=== PATIENT | female | born 1980 | race Caucasian/White ===

== ENCOUNTER 2017-03-13 17:30 | Emergency (ER) | payer OTHER ==
[~2017-03-13] VITALS: Ht 170.2 cm; Wt 90.7 kg
[2017-03-13] MEDS ORDERED: MOBIC15 MG PO (18:14)
[2017-03-13] MEDS ORDERED: NORCO 5-325 TA1 EACH PO (18:28)
[2017-03-13 18:33] VITALS: BP 129/82
== END 2017-03-13 18:33 | disposition home or self-care (01) ==
LOC: ER 17:30
DX: S92.512A Displaced fracture of proximal phalanx of left lesser toe(s), initial encounter for closed fracture (principal); W22.8XXA Striking against or struck by other objects, initial encounter; Y93.89 Activity, other specified; Y92.89 Other specified places as the place of occurrence of the external cause; Y99.8 Other external cause status

== ENCOUNTER 2017-07-21 17:27 | Emergency (ER) | payer OTHER ==
[~2017-07-21] VITALS: Ht 170.2 cm; Wt 90.7 kg
[~2017-07-21 17:27] MED LIST: MOBIC15 MG PO; NORCO 5-325 TA1 EACH PO
[2017-07-21] MEDS ORDERED: HYDROCODONE-AP1 EAC6 PO (18:53)
[2017-07-21 19:11] VITALS: BP 138/88
== END 2017-07-21 19:12 | disposition home or self-care (01) ==
LOC: ER 17:27
DX: S60.031A Contusion of right middle finger without damage to nail, initial encounter (principal); W22.8XXA Striking against or struck by other objects, initial encounter; Y93.89 Activity, other specified; Y92.89 Other specified places as the place of occurrence of the external cause; Y99.8 Other external cause status

== ENCOUNTER 2017-08-14 13:46 | Emergency (ER) | payer OTHER ==
[~2017-08-14] VITALS: Ht 167.6 cm; Wt 83.9 kg
[~2017-08-14 13:46] MED LIST changes: +HYDROCODONE-AP1 EAC6 PO
[2017-08-14 14:40] VITALS: BP 121/83
[2017-08-14] MEDS ORDERED: VIBRAMYCIN 100100 MG PO (15:06)
== END 2017-08-14 14:45 | disposition home or self-care (01) ==
LOC: ER 13:46
DX: L73.9 Follicular disorder, unspecified (principal); J06.9 Acute upper respiratory infection, unspecified

== ENCOUNTER 2020-06-28 11:36 | Emergency (ER) | payer OTHER ==
[~2020-06-28] VITALS: Ht 170.2 cm; Wt 86.2 kg
[~2020-06-28 11:36] MED LIST changes: +VIBRAMYCIN 100100 MG PO
[2020-06-28] MEDS ORDERED: TRAZODONE HCL100 MG PO (11:49)
[2020-06-28] MEDS ORDERED: CEPHALEXIN500 MG PO (11:50)
[2020-06-28] MEDS ORDERED: ONDANSETRON HCL4 M2 PO (11:50)
[2020-06-28 12:09] LABS: URINE BILIRUBIN NEGATIVE (Negative); URINE BLOOD NEGATIVE (Negative); URINE CLARITY CLEAR; URINE GLUCOSE-RANDOM* TRACE (Negative); URINE KETONES NEGATIVE (Negative); URINE LEUKOCYTES-REFLEX TRACE (Negative); URINE PROTEIN (DIPSTICK) NEGATIVE (Negative); URINE SPECIFIC GRAVITY >= 1.030 (1.005-1.035)
[2020-06-28 12:11] LABS: URINE NITRITE-REFLEX POSITIVE (Negative)
[2020-06-28 12:13] LABS: URINE COLOR ORANGE
[2020-06-28 12:37] LABS: CASTS None Seen /LPF (None Seen); MUCUS >6 Heavy strn/LPF (None Seen); SQUAMOUS >10 Many /LPF (0-3)
[2020-06-28 12:38] LABS: BACTERIA-REFLEX 1-9 Few /HPF (None Seen); CRYSTALS None Seen /LPF (None Seen); URINE RBC None Seen /HPF (0-2); URINE WBC-REFLEX 0-5 Rare /HPF (0-5)
[2020-06-28 13:14] LABS: HEMATOCRIT 37.8 % (37.0-47.0); HEMOGLOBIN 12.4 gm/dL (12.0-15.0); MCH 32.1 pg (26.0-34.0); MCHC 32.8 g/dL (28.0-37.0); MCV 97.8 fL (80.0-100.0); PLATELET COUNT 211 thou/uL (150-400); RBC 3.87 mil/uL (4.20-5.00); RDW 15.2 % (10.5-14.5); WBC 6.7 thou/uL (4.0-11.0)
[2020-06-28 13:15] LABS: CALCIUM 8.5 mg/dL (8.5-10.1); CREATININE 0.8 mg/dL (0.6-1.0); POTASSIUM 4.1 mmol/L (3.5-5.1)
[2020-06-28 13:22] LABS: TOTAL BILIRUBIN 0.3 mg/dL (0.2-1.0); TOTAL PROTEIN 6.6 g/dL (6.4-8.2)
[2020-06-28 13:48] LABS: ABSOLUTE NEUTROPHILS 4.2 thou/uL (1.4-8.2); LARGE PLATELETS OCCASIONAL
[2020-06-28] MEDS ORDERED: ZOFRAN ODT4 MG PO (14:12)
[2020-06-28] MEDS ORDERED: SENOKOT-S TABL1 EACH PO (14:12)
[2020-06-28] MEDS ORDERED: IBU600 MG PO (14:12)
[2020-06-28 14:16] VITALS: BP 169/112
[2020-06-28] MEDS ORDERED: NORCO 5-325 TA1 EAC2 PO (14:17)
== END 2020-06-28 14:29 | disposition home or self-care (01) ==
LOC: ER 11:36
PROVIDERS: Physician Assistant
DX: N83.201 Unspecified ovarian cyst, right side (principal); Z79.899 Other long term (current) drug therapy

== ENCOUNTER 2020-07-03 13:42 | Emergency (ER) | payer OTHER ==
[~2020-07-03] VITALS: Ht 170.2 cm; Wt 86.2 kg
[~2020-07-03 13:42] MED LIST changes: +CEPHALEXIN500 MG PO; +IBU600 MG PO; +NORCO 5-325 TA1 EAC2 PO; +ONDANSETRON HCL4 M2 PO; +SENOKOT-S TABL1 EACH PO; +TRAZODONE HCL100 MG PO; +ZOFRAN ODT4 MG PO
[2020-07-03 14:08] LABS: URINE BILIRUBIN NEGATIVE (Negative); URINE BLOOD 2+ (Negative); URINE CLARITY CLEAR; URINE COLOR YELLOW; URINE GLUCOSE-RANDOM* NEGATIVE (Negative); URINE KETONES NEGATIVE (Negative); URINE LEUKOCYTES-REFLEX NEGATIVE (Negative); URINE NITRITE-REFLEX NEGATIVE (Negative); URINE PROTEIN (DIPSTICK) NEGATIVE (Negative); URINE UROBILINOGEN 0.2 E.U./dl (0.2-1.0)
[2020-07-03 14:33] LABS: BASOPHILS 0.6 % (0.0-2.0); EOSINOPHILS 1.6 % (0.0-3.0); HEMATOCRIT 38.8 % (37.0-47.0); HEMOGLOBIN 13.2 gm/dL (12.0-15.0); LYMPHOCYTES 18.1 % (24.0-44.0); MCH 32.5 pg (26.0-34.0); MCV 95.6 fL (80.0-100.0); MONOCYTES 9.5 % (1.0-8.0); PLATELET COUNT 273 thou/uL (150-400); POLYS 70.2 % (36.0-66.0); RBC 4.06 mil/uL (4.20-5.00); RDW 15.2 % (10.5-14.5); WBC 8.6 thou/uL (4.0-11.0)
[2020-07-03 14:35] LABS: CASTS None Seen /LPF (None Seen); SQUAMOUS 0-3 Few /LPF (0-3); URINE WBC-REFLEX None Seen /HPF (0-5)
[2020-07-03 14:36] LABS: BACTERIA-REFLEX None Seen /HPF (None Seen); CRYSTALS None Seen /LPF (None Seen); URINE RBC 0-2 Rare /HPF (0-2)
[2020-07-03 14:43] LABS: CALCIUM 8.8 mg/dL (8.5-10.1); CREATININE 0.8 mg/dL (0.6-1.0); POTASSIUM 4.5 mmol/L (3.5-5.1)
[2020-07-03 14:48] LABS: ALBUMIN 3.2 g/dL (3.4-5.0); TOTAL BILIRUBIN 0.3 mg/dL (0.2-1.0)
[2020-07-03] MEDS ORDERED: OMEPRAZOLE40 MG PO (16:00)
[2020-07-03] MEDS ORDERED: CARAFATE 1 GM TA1 G1 PO (16:00)
[2020-07-03 16:02] VITALS: BP 156/90
== END 2020-07-03 16:10 | disposition home or self-care (01) ==
LOC: ER 13:42
PROVIDERS: Physician Assistant
DX: K29.70 Gastritis, unspecified, without bleeding (principal); Z79.899 Other long term (current) drug therapy; Z79.1 Long term (current) use of non-steroidal anti-inflammatories (NSAID); Z90.49 Acquired absence of other specified parts of digestive tract